=== PATIENT | male | born 1945 | race Caucasian/White ===

== ENCOUNTER 2018-06-16 05:25 | Day surgery (SDC) | payer OTHER | END 2018-06-16 10:15 | disposition home or self-care (01) | LOC: AMB-ENDOS 05:25 | DX: R13.14 Dysphagia, pharyngoesophageal phase (principal); G20 Parkinson's disease ==

== ENCOUNTER 2018-07-01 05:47 | Day surgery (SDC) | payer OTHER | END 2018-07-01 12:55 | disposition home or self-care (01) | LOC: AMB-ENDOS 05:47 | DX: K94.23 Gastrostomy malfunction (principal) ==